=== PATIENT | female | born 1990 | race Caucasian/White ===

== ENCOUNTER 2021-06-27 15:56 | Outpatient (CLI) | payer OTHER, SELFPAY ==
--- NOTE | ~2021-06-27 | US_ITS ---
US OB /maternal detail DATE: 06/27/2021 16:38 INDICATION: anatomy screen TECHNIQUE: Real-time imaging and Doppler analysis COMPARISON: None FINDINGS: Live single intrauterine gestation, fetus in transverse lie. The placenta is anterior fundal. Amniotic fluid index measures 13.5 cm. (5th percentile CAMERON: 9.0 cm; 95th percentile CAMERON: 20.7 cm) No cerebral ventriculomegaly. The cerebellum appears unremarkable. Normal appearance of t he cisterna magna and nuchal fold. The spine appears normal. Four-chamber heart with feta l heart rate of 152 bpm. Left and right ventricular outflow tracts appear normal. The diaphragm is intact. Fluid is demonstrated in the stomach and urinary bladder. The kidneys appear normal without hydronephrosis. Three-vessel umbilical cord with normal abdominal wall insertion . Extremity is severe demonstrated. Biparietal diameter 4.60 cm; 19 weeks 6 days Head circumference 16.66 cm; 19 weeks 2 days Abdominal circumference 14.39 cm; 19 weeks 5 days Femur length 2.97 cm; 19 weeks 1 day Composite age by Hadlock formula is 19 weeks 4 days +/- 1 week 3 days with RACIEL of 11/17/2021. Estimated weight is 294.5 +/- 44.2 g EFW-GP: 47.9% Head circumference/abdominal circumference 1.16, within normal range of 1.08-1.26 Femur length/head circumference 17.85, within normal range of 16.50-19.16 IMPRESSION: Normal anatomy screen Composite age by Hadlock formula is 19 weeks 4 days +/- 1 week 3 days with RACIEL of 11/17/2021 Reviewed, dictated and finalized at [facility]. Reviewed, dictated and finalized at [facility].
== END 2021-06-27 15:57 | disposition home or self-care (01) ==
LOC: ANHIMG 16:02
PROVIDERS: PCP Family Medicine; Visit Provider Obstetrics & Gynecology Gynecologic Oncology
DX: Z36.9 Encounter for antenatal screening, unspecified (principal); Z3A.19 19 weeks gestation of pregnancy
CPT/HCPCS: 76805